=== PATIENT | female | born 1950 | race African-American/Black ===

== ENCOUNTER 2019-06-16 11:50 | Emergency (ER) | payer MEDICAID, SELFPAY ==
[2019-06-16 12:53] LABS: #Eosinphils 0.2 thou/uL (0.0-0.7); #Lymphocytes 1.5 thou/uL (1.20-3.40); #Monocytes 0.7 thou/uL (0.11-0.59); #Neutrophils 4.1 thou/uL (1.40-6.50); %Basophils 0.5 % (0.0-1.0); %Lymphocytes 22.8 % (21.0-51.0); %Monocytes 11.2 % (0.0-10.0); %Neutrophils 62.5 % (42.0-75.0); Hemoglobin 16.2 g/dL (12.0-16.0); Mean Corpuscular HGB CONC 33.7 g/dL (32.0-36.0); Mean Corpuscular Hemoglobin 31.1 pg (27.0-31.0); Mean Corpuscular Volume 92.1 fL (78.0-98.0); Mean Platelet Volume 8.6 fL (7.4-10.4); Platelet Count 165 thou/uL (130-400); Red Blood Cell (RBC) Count 5.23 mill/uL (4.20-5.40); White Blood Cell (WBC) Count 6.6 thou/uL (4.8-10.8)
--- NOTE | 2019-06-16 12:53 | RAD ---
EXAM: Portable chest PROVIDED CLINICAL HISTORY: Chest pain COMPARISON: 09/09/2014 FINDINGS: Cardiac and mediastinal silhouette is within normal limits. No focal consolidation, pleural fluid or pneumothorax evident. Vascular calcification involves the aortic arch. IMPRESSION: No evidence for an acute cardiopulmonary process.
[2019-06-16 13:13] LABS: ALT (SGPT) 14 U/L (8-55); AST (SGOT) 21 U/L (5-34); Albumin 3.8 g/dL (3.4-4.8); Alkaline Phosphatase 58 U/L (40-150); Anion Gap 9 mmol/L (10-20); BUN (Urea Nitrogen) 17 mg/dL (9.8-20.1); Bilirubin, Total 0.9 mg/dL (0.2-1.2); CK (CPK) 46 U/L (29-168); Calc. Creatinine Clearance 0 mL/min (70-130); Calcium 9.2 mg/dL (7.8-10.44); Carbon Dioxide 23 mmol/L (23-31); Chloride 107 mmol/L (98-107); Estimated GFR-MDRD 86; Globulin 3.4 g/dL (2.4-3.5); Glucose 95 mg/dL (80-115); Potassium 3.9 mmol/L (3.5-5.1); Protein, Total 7.2 g/dL (6.0-8.3); Sodium 135 mmol/L (136-145)
== END 2019-06-16 14:21 | disposition home or self-care (01) ==
LOC: ERS 11:50
DX: I47.1 Supraventricular tachycardia (principal); I10 Essential (primary) hypertension; F17.210 Nicotine dependence, cigarettes, uncomplicated; Z79.82 Long term (current) use of aspirin; Z79.899 Other long term (current) drug therapy
CPT/HCPCS: 36415; 71045; 80053; 82550; 84484; 85025; 93005

== ENCOUNTER 2019-07-18 22:29 | Observation (INO) | payer MEDICARE, MEDICAID ==
[2019-07-18 23:26] LABS: ALT (SGPT) 33 U/L (8-55); AST (SGOT) 42 U/L (5-34); Albumin 3.5 g/dL (3.4-4.8); Alkaline Phosphatase 62 U/L (40-110); Anion Gap 14 mmol/L (10-20); BUN (Urea Nitrogen) 26 mg/dL (9.8-20.1); Bilirubin, Total 0.6 mg/dL (0.2-1.2); Calc. Creatinine Clearance 0 mL/min (70-130); Calcium 8.5 mg/dL (7.8-10.44); Carbon Dioxide 19 mmol/L (23-31); Chloride 106 mmol/L (98-107); Estimated GFR-MDRD 90; Globulin 2.8 g/dL (2.4-3.5); Glucose 108 mg/dL (80-115); Lipase 18 U/L (8-78); Magnesium 1.8 mg/dL (1.6-2.6); Potassium 4.2 mmol/L (3.5-5.1); Protein, Total 6.3 g/dL (6.0-8.3); Sodium 135 mmol/L (136-145)
[2019-07-18 23:39] LABS: #Eosinphils 0.1 thou/uL (0.0-0.7); #Lymphocytes 1.1 thou/uL (1.20-3.40); #Monocytes 0.5 thou/uL (0.11-0.59); #Neutrophils 4.8 thou/uL (1.40-6.50); %Basophils 0.7 % (0.0-1.0); %Eosinophils 0.9 % (0.0-10.0); %Lymphocytes 16.9 % (21.0-51.0); %Monocytes 7.3 % (0.0-10.0); %Neutrophils 74.2 % (42.0-75.0); Hemoglobin 13.7 g/dL (12.0-16.0); Mean Corpuscular HGB CONC 31.9 g/dL (32.0-36.0); Mean Corpuscular Hemoglobin 29.7 pg (27.0-31.0); Mean Corpuscular Volume 93.1 fL (78.0-98.0); Mean Platelet Volume 8.5 fL (7.4-10.4); Platelet Count 134 thou/uL (130-400); RBC Distribution Width 12.5 % (11.5-14.5); Red Blood Cell (RBC) Count 4.62 mill/uL (4.20-5.40); White Blood Cell (WBC) Count 6.4 thou/uL (4.8-10.8)
[2019-07-18 23:49] LABS: CKMB 2.2 ng/mL (0-6.6)
[2019-07-19 00:53] LABS: Bacteria/HPF None Seen HPF (None Seen); Bilirubin Negative (Negative); Blood, Urine Negative (Negative); Calcium Oxalate Crystals 1+ HPF (None Seen); Clarity Clear (Clear); Glucose, Urine (Dipstick) Normal (Negative); Leukocyte Negative Leu/uL (Negative); Nitrite Negative (Negative); Protein, Urine (Dipstick) 30 mg/dL (Neg-Trace); RBC/HPF 0-3 HPF (0-3); Squamous Epithelial 0-3 HPF (0-3)
[2019-07-19 00:54] LABS: Amphetamine Not Detected (NotDetected); Barbiturates Screen Not Detected (NotDetected); Benzodiazepine Screen Not Detected (NotDetected); Cocaine Metabolite Screen Detected (NotDetected); Medtox Control Line Valid? VALID (VALID); Medtox Reader # READER 4; Methadone Not Detected (NotDetected); Methamphetamine Not Detected (NotDetected); Opiate Screen Not Detected (NotDetected); Oxycodone Screen Not Detected (NotDetected); Phencyclidine (PCP) Not Detected (NotDetected); THC/Cannabinoid Screen Detected (NotDetected); Tricyclic Screen Not Detected (NotDetected)
[2019-07-19 01:52] VITALS: BMI 22.3
[2019-07-19 02:34] LABS: Troponin I 0.071 ng/mL (< 0.028)
[2019-07-19] MEDS ORDERED: Nitroglycerin 0.4 MG TAB (25 Tab Bottle) PO PRN (05:01)
[2019-07-19] MEDS ORDERED: Ondansetron PF 4 MG/2 ML Vial IVP PRN (05:03)
[2019-07-19] MEDS ORDERED: Acetaminophen 325 MG TAB PO PRN (05:03)
[2019-07-19] MEDS ORDERED: Ondansetron ODT 4 MG TAB PO PRN (05:03)
[2019-07-19] MEDS ORDERED: Calcium Carbonate 500 MG ChewTAB PO PRN (05:03)
[2019-07-19] MEDS ORDERED: Senokot S 8.6-50 MG TAB PO PRN (05:03)
--- NOTE | 2019-07-19 05:52 | HP ---
PRIMARY CARE PHYSICIAN: Alejandra Hudson. CHIEF COMPLAINT: Chest discomfort. HISTORY OF PRESENT ILLNESS: The patient is a 69-year-old female with polysubstance abuse and supraventricular tachycardia, presented to the emergency room with chest discomfort along with palpitations. Five years ago, patient was admitted at this facility for chest discomfort along with palpitations. She was diagnosed with supraventricular tachycardia secondary to cocaine. She was subsequently discharged home after an echocardiogram that showed normal ejection fraction of 60% to 65%. Last month, the patient was evaluated in the emergency room for supraventricular tachycardia that lasted for around 15 minutes or so. She was discharged home. She was advised to follow up with Cardiology as outpatient. Last night, the patient had chest discomfort that was pressure-like along with palpitations. She also had shortness of breath along with lightheadedness. She was found to have narrow complex tachycardia. She received Cardizem by the EMS after which her rhythm changed to sinus. She currently takes metoprolol 50 mg twice daily. Please note that there is no rhythm strip by the EMS. EKG in the emergency room showed sinus rhythm with nonspecific ST-T wave changes. PAST MEDICAL HISTORY: 1. Polysubstance abuse. 2. History of supraventricular tachycardia. 3. Hypertension. PAST SURGICAL HISTORY: Reviewed with the patient and none. SOCIAL HISTORY: The patient currently lives at home. She drinks alcohol 3-4 times a week. Currently abuses cannabis and cocaine. Also smokes up to half pack a day. FAMILY HISTORY: Positive for heart disease. ALLERGIES: NO KNOWN DRUG ALLERGIES. CURRENT HOME MEDICATIONS: 1. Metoprolol 50 mg b.i.d. 2. Aspirin 81 mg daily. REVIEW OF SYSTEMS: All other review of systems was reviewed and were found negative. PHYSICAL EXAMINATION: VITAL SIGNS: Temperature 97.7, respirations of 19, pulse rate of 68, blood pressure of 128/57, O2 saturation of 98% on room air. GENERAL: A 69-year-old female in no apparent distress. Denies any chest discomfort. HEENT: Head, atraumatic and normocephalic. Sclerae anicteric. Moist mucous membranes. No oral lesion. NECK: Supple. No JVD. No carotid bruit. LUNGS: Clear to auscultation bilaterally. No wheezing, rales, or rhonchi. HEART: S1 and S2 present. Regular rate and rhythm. No rubs or gallops. There is systolic murmur 2/5 over the mitral area. ABDOMEN: Soft, nontender. Bowel sounds present. No rebound or guarding. EXTREMITIES: No edema or calf tenderness. NEUROLOGIC: Grossly nonfocal. Moves all 4 extremities. PSYCHIATRY: Alert, awake oriented x3. SKIN: Warm and dry. LYMPH NODE: No palpable lymph nodes in the neck. Peripheral, vascular, radial pulses palpable bilaterally. MUSCULOSKELETAL: No joint swelling tenderness. SKIN: Warm and dry. LABORATORY FINDINGS: EKG by my review as discussed above. WBC is 6.4 with hemoglobin 13.7. Chemistry showed sodium 135, potassium 4.2, chloride 106, bicarb 19, BUN 26, creatinine 0.7. Troponin of 0.071. Urine drug screen positive for cocaine and cannabinoid. Urinalysis was negative for bacteria. IMAGING STUDIES: Chest x-ray by my review was negative for infiltrate or edema. IMPRESSION: 1. Chest discomfort along with palpitations, probably secondary to cocaine abuse. 2. Narrow complex tachycardia. There is no rhythm strip from the EMS in the ER chart. 3. Polysubstance abuse (Tobacco dependence/cannabis abuse/cocaine abuse). 4. History of hypertension with hypertensive heart disease. 5. Dyslipidemia. 6. Chronic kidney disease, stage 2. 7. Elevated troponin secondary to demand ischemia/type 2 myocardial infarction. 8. Hyponatremia. PLAN: The patient will be monitored as a 23-hour observation on the telemetry unit. Serial troponins will be obtained. We will discontinue metoprolol due to cocaine abuse. We will obtain an echocardiogram. We will also try to obtain rhythm strips from the EMS. The patient was extensively counseled on lifestyle modification. We will start her on oral Cardizem. Plan of care was discussed with the patient in detail. She stated understanding. Job ID: [id number]
[2019-07-19 05:56] LABS: CKMB 4.7 ng/mL (0-6.6)
--- NOTE | 2019-07-19 07:13 | RAD ---
1 VIEW CHEST: Date: 07/18/19 HISTORY: Chest pain with crushing type pressure. COMPARISON: 06/16/19. FINDINGS: The cardiac silhouette is magnified by projection, but is enlarged. Pulmonary vasculature is within n ormal limits. There is a linear patchy density at the right lung base which was not present on the pr ior study. This could be related to atelectasis or developing area of pneumonitis. The lungs are othe rwise clear. There is osteopenia with bilateral glenohumeral osteoarthropathy, and the humeral heads are high-riding bilaterally. Vascular calcifications seen in thoracic aorta. IMPRESSION: Linear increased densities right lung base which may be related to vascular structures, but this is c ertainly more prominent than on the prior exam, and atelectasis or pneumonitis cannot be entirely exc luded. Follow-up evaluation is recommended. POS: OFF
[2019-07-19] MEDS: Aspirin 325 mg Enteric Coated Tablet PO SCH (08:08)
[2019-07-19] MEDS: cloNIDine 0.1 MG TAB PO PRN ×2 (08:08→18:08)
[2019-07-19] MEDS: Famotidine 20 MG TAB PO SCH ×2 (08:09→21:33)
[2019-07-20] MEDS: Famotidine 20 MG TAB PO SCH (08:41)
[2019-07-20] MEDS: Aspirin 325 mg Enteric Coated Tablet PO SCH (08:41)
[2019-07-20 13:48] VITALS: BP 162/72; TEMP 97
--- NOTE | 2019-07-20 19:00 | DIS ---
DATE OF ADMISSION: 07/19/2019 DATE OF DISCHARGE: 07/20/2019 CONDITION ON DISCHARGE: Stable. DISCHARGE INSTRUCTIONS: 1. The patient is recommended to stop cocaine use. 2. The patient is recommended to take all medications as directed. 3. The patient is recommended to follow up with primary care physician in the next 5 to 7 days. 4. The patient is recommended to return to acute care hospital immediately if signs or symptoms return, worsen, or any other new symptoms occur. DISCHARGE MEDICATIONS: The patient is recommended to continue home medications without changes. 1. Metoprolol tartrate 50 mg one tablet p.o. b.i.d. 2. Aspirin 81 mg one tablet p.o. daily. 3. The patient was given instructions to not take metoprolol if she is going to use cocaine and she states that she is going to stop this and she is no longer using cocaine. HOSPITAL COURSE: Ms. Judd is a pleasant 69-year-old female, who presented to [facility] on 07/19/2019, with palpitations after cocaine use. The patient was found to have urinary toxicology that was positive for cocaine and cannabinoids. The patient with sinus tachycardia per EMS rhythm strip. The patient was admitted to medical unit with telemetry and monitored on continuous telemetry. There were no arrhythmias appreciated on continuous telemetry throughout her hospitalization. The patient's blood pressure and vital signs remained stable. The patient had an echocardiogram, please see full report for details-the patient with preserved ejection fraction with some valvular pathology that is unchanged from prior echo from 2013. The patient recommended safe for discharge as her symptoms have completely resolved. The patient recommended to abstain from cocaine use as this is likely the cause of sinus tachycardia. The patient is recommended to take all medications as directed. The patient recommended to follow up with primary care physician in the next 5 to 7 days. The patient recommended to return to acute care hospital immediately if signs or symptoms return, worsen, or any other new symptoms occur. Greater than 36 minutes spent coordinating care and discharge process Job ID: [id number] MTDD
== END 2019-07-20 14:05 | disposition home or self-care (01) ==
LOC: ERS 22:29 → 2NO 07-19 01:22 → INTOOBSV 07-19 01:25
PROVIDERS: ADMIT Internal Medicine; ATTEND Internal Medicine
DX: T40.5X1A Poisoning by cocaine, accidental (unintentional), initial encounter (principal); T40.7X1A Poisoning by cannabis (derivatives), accidental (unintentional), initial encounter; I47.1 Supraventricular tachycardia; I13.10 Hypertensive heart and chronic kidney disease without heart failure, with stage 1 through stage 4 chronic kidney disease, or unspecified chronic kidney disease; N18.2 Chronic kidney disease, stage 2 (mild); F17.210 Nicotine dependence, cigarettes, uncomplicated; E78.5 Hyperlipidemia, unspecified; E87.1 Hypo-osmolality and hyponatremia; I21.A1 Myocardial infarction type 2; Z79.82 Long term (current) use of aspirin; Z79.899 Other long term (current) drug therapy
CPT/HCPCS: 71045; 80306; 82553 ×2; 83690; 83735; 84484 ×3; 93005; 93306; 97139 ×2; 99291; G0378 ×2; 36415; 80053; 81003; 81015; 84443; 85025

== ENCOUNTER 2019-09-19 14:31 | Observation (INO) | payer MEDICARE, MEDICAID ==
[2019-09-19 15:05] LABS: Hemoglobin 15.6 g/dL (12.0-16.0); Mean Corpuscular HGB CONC 33.3 g/dL (32.0-36.0); Mean Corpuscular Hemoglobin 30.2 pg (27.0-31.0); Mean Corpuscular Volume 90.8 fL (78.0-98.0); Mean Platelet Volume 8.9 fL (7.4-10.4); Platelet Count 159 thou/uL (130-400); Red Blood Cell (RBC) Count 5.15 mill/uL (4.20-5.40)
--- NOTE | 2019-09-19 15:07 | RAD ---
Portable chest: HISTORY: Chest pain COMPARISON: 07/18/2019 FINDINGS: Lung tian are clear. Heart and mediastinum appear unremarkable. Vascularity is upper nor mal but stable in appearance. Visualized osseous structures unremarkable. IMPRESSION: No acute finding
[2019-09-19 15:22] LABS: Eosinophils 2 % (0-10); Lymphocytes 36 % (21-51); MDiff Complete? YES; Monocytes 14 % (0-10); Neutrophil 40 % (42-75); Platelet Morphology Comment Appears Adequate; RBC Morphology Normal; Reactive Lymphocytes 6 % (0-10)
[2019-09-19 15:28] LABS: ALT (SGPT) 11 U/L (8-55); AST (SGOT) 16 U/L (5-34); Albumin 3.9 g/dL (3.4-4.8); Alkaline Phosphatase 70 U/L (40-110); Anion Gap 14 mmol/L (10-20); BUN (Urea Nitrogen) 17 mg/dL (9.8-20.1); Bilirubin, Total 0.5 mg/dL (0.2-1.2); CK (CPK) 59 U/L (29-168); Calc. Creatinine Clearance 0 mL/min (70-130); Calcium 9.7 mg/dL (7.8-10.44); Carbon Dioxide 26 mmol/L (23-31); Chloride 104 mmol/L (98-107); Estimated GFR-MDRD Greater than 90; Globulin 3.7 g/dL (2.4-3.5); Glucose 100 mg/dL (80-115); Lipase 40 U/L (8-78); Potassium 3.7 mmol/L (3.5-5.1); Protein, Total 7.6 g/dL (6.0-8.3); Sodium 140 mmol/L (136-145)
[2019-09-19] MEDS ORDERED: Aspirin Chewable 81 MG TAB ONE (15:35)
[2019-09-19] MEDS ORDERED: Nitroglycerin 2% Ointment 1 INCH/1 GM Packet ONE (15:35)
[2019-09-19] MEDS ORDERED: Mag-Al 1200 mg/1200 mg/30 ML UDCUP ONE (15:36)
[2019-09-19] MEDS ORDERED: Lidocaine Viscous Sol 2% 15 ml UD Cup ONE (15:36)
[2019-09-19 15:55] LABS: T4 8.8 ug/dL (4.87-11.72); Thyroid Stimulating Hormone 0.3907 uIU/mL (0.35-4.94)
[2019-09-19 17:06] LABS: Acetaminophen Less than 6.0 mcg/mL (10.0-30.0); Alcohol Less than 10 mg/dL (Less than 10); Salicylate Less than 8.0 mg/dL (15.0-30.0)
[2019-09-19 18:45] LABS: Troponin I Less than 0.010 ng/mL (< 0.028)
[2019-09-19] MEDS ORDERED: hydrALAZINE 20 MG/ML VIAL SLOW IVP PRN (18:52)
[2019-09-19] MEDS ORDERED: Acetaminophen 325 MG TAB PO PRN (18:55)
[2019-09-19] MEDS ORDERED: Acetaminophen 650 MG Suppository PR PRN (18:55)
--- NOTE | 2019-09-19 20:06 | HP ---
TIME OF ASSESSMENT: 1700 hours. CHIEF COMPLAINT: Chest pain. HISTORY OF PRESENT ILLNESS: Ms. Judd is a 69-year-old woman, who presents with complaints of worsening left substernal chest pain for the last several days. States she has had chronic issues with intermittent chest pain for months, but more recently has become more frequent and lasting longer. She states that happens while she is resting and while she exerts herself. She denies any associated shortness of breath. She does have a chronic cough productive for clear to white sputum. Her cough has not been worse in recent days. She denies any fevers or chills, but has been extremely tired for the last week. Denies any runny nose or sore throat. Denies any muscle aches. The patient states that the pain sometimes relieved when she belches or by self-induced vomiting. Denies any hematemesis or abdominal pain. The patient does have a known history of cocaine use, but is unable to pinpoint the last time that she used. She also reports smoking the last few months, but unable to pinpoint how many cigarettes per day. Per ED report, the patient took two baby aspirin this morning while at home. On arrival here, she had two separate EKGs done both reported to have possible ST elevation. However, on review by the ED physician and Dr. Gutierrez, who took apart there did not appear to be any clear evidence of ST changes. The patient has been asymptomatic while she has been here. She was given 162 mg of aspirin in the emergency department. She was noted to have a significantly elevated blood pressure on initial presentation of 231/95. This improved to 170/73 following Nitro-Bid. The patient was also given a GI cocktail. REVIEW OF SYSTEMS: The patient denies any changes with her appetite. Denies any dysphagia or regurgitation. Denies any abdominal pain. She denies any changes or stools such as diarrhea, constipation, melena, or bright red blood per rectum. Denies having any urinary symptoms. She does complain of feeling lightheaded at times, but no presyncope or syncope. No lower leg swelling or calf tenderness. ALLERGIES: NO KNOWN DRUG ALLERGIES. CURRENT MEDICATIONS: 1. Metoprolol succinate. 2. Aspirin. PAST MEDICAL HISTORY: 1. Hypertension. 2. Atrial fibrillation. 3. Asthma several years ago and no longer requires inhalers. 4. History of cocaine abuse. PAST SURGICAL HISTORY: None. 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 Reports being a former heavy smoker, but has cut down significantly. Unable to state how many cigarettes she has a day, but it is less than half a pack. Denies any recent cocaine use, but unable to state when the last time she used it was. Also history of marijuana use. PHYSICAL EXAMINATION: GENERAL: The patient appears thin, well developed, and in no acute distress. VITAL SIGNS: Temperature 98.3, pulse 53, blood pressure 180/70, respirations 14, O2 saturation 98% on room air. HEENT: Normocephalic and atraumatic. Pupils are equal, round, and reactive to light. Sclerae icterus. Oropharynx is clear. NECK: Supple. LUNGS: Clear to auscultation bilaterally without any wheezes, rales, or rhonchi. CARDIAC: Regular rate and rhythm. No reproducible chest wall tenderness on palpation. ABDOMEN: Soft, nontender, nondistended. No guarding or rigidity. Normal bowel sounds present. EXTREMITIES: No lower leg swelling or edema. No calf tenderness. NEUROLOGIC: Alert and oriented x3. No neuro deficits on exam. SKIN: Normal, warm, and dry. INVESTIGATIONS: Laboratory studiesdone in the emergency department include full blood count notable for white count of 5, hemoglobin of 15.6, hematocrit 46.8, platelets 159, neutrophils 40%. Sodium 140, potassium 3.7, BUN 17, creatinine 0.76, GFR greater than 90. LFTs unremarkable. CK 59, lipase 40. Initial troponin negative. BNP 244.9, T4 8.8, TSH 0.3907. Blood drug screen was negative for acetaminophen and salicylates. D-dimer pending. Chest x-ray was done showing no acute findings. IMPRESSION AND PLAN: Ms. Judd is a pleasant 69-year-old woman, who presents with complaints of intermittent chest pain worsen over the last several days. She is being admitted for management of the following. 1. Acute coronary syndrome rule out. EKG with questionable ST elevations. However, on review by ED physician, Dr. Gutierrez, there is no evidence of ST changes. Initial troponin negative. Continue to trend troponins. The patient known to have history of cocaine abuse. We will obtain urine drug screen. She had an echo done in June 2019 which showed an EF of 60% to 65%, mild , mitral stenosis, aortic regurgitation, mild TR and WA. There was some enlargement of the right atrium and changes consistent with diastolic dysfunction at that time. BNP today is 244.9. D-dimer pending. Further imaging with CT angiogram versus CT chest pending results of D-dimer. The patient will be admitted to telemetry for continuous cardiac monitoring. Consult placed to Cardiology. 2. Hypertensive urgency. The patient treated with Nitro-Bid with notable improvement in her blood pressure. We will monitor blood pressure and resume home medications once verified. P.r.n. hydralazine ordered. 3. Gastrointestinal prophylaxis. The patient does report some GI type of symptoms and pain is relieved with belching and self-induced vomiting. GI cocktail given in the emergency department. She could be experiencing esophageal spasms. We will start patient on famotidine b.i.d. 4. Deep venous thrombosis prophylaxis. The patient is ambulatory. 5. Code status full. Surrogate decision maker is at this present time. Job ID: [id number]
[2019-09-19 20:35] VITALS: BMI 21.8
[2019-09-19 20:45] LABS: Amphetamine Not Detected (NotDetected); Barbiturates Screen Not Detected (NotDetected); Benzodiazepine Screen Not Detected (NotDetected); Cocaine Metabolite Screen Detected (NotDetected); Medtox Control Line Valid? VALID (VALID); Medtox Reader # READER 4; Methadone Not Detected (NotDetected); Methamphetamine Not Detected (NotDetected); Opiate Screen Not Detected (NotDetected); Oxycodone Screen Not Detected (NotDetected); Phencyclidine (PCP) Not Detected (NotDetected); THC/Cannabinoid Screen Detected (NotDetected); Tricyclic Screen Not Detected (NotDetected)
[2019-09-19] MEDS ORDERED: Famotidine/PF 20 mg/2ml Vial SLOW IVP SCH (21:00)
[2019-09-19] MEDS ORDERED: Famotidine 20 MG TAB PO SCH (21:15)
--- NOTE | 2019-09-19 21:18 | CT ---
CT ANGIOGRAM THORAX WITH IV CONTRAST AND 3D RECONSTRUCTIONS: 09/19/19 HISTORY: Dyspnea on exertion, chest pain. COMPARISON: None. FINDINGS: The right and left main pulmonary arteries are enlarged measuring 3.3 cm on the left. Main pulmonary artery is not significantly dilated. However, these findings may be attributable to pulmonary artery hypertension. No filling defects are seen in the pulmonary arteries to suggest a pulmonary embolus. The heart is mildly enlarged. Prominent calcifications of the mitral valve annulus are noted. Vascula r calcifications are seen in the coronary arteries as well as involving the thoracic aorta. The thora cic aorta is normal in caliber with without evidence of an aortic dissection. The thyroid gland is diffusely enlarged. No discrete nodule is seen on this exam. There is mildly increased precarinal lymph node measuring 1 cm in short axis dimension. Also soft tis arsh prominence in the right hilar region likely related to prominent lymph nodes. There are reticulonodular densities seen within the right upper lobe which may be related to infectio us or inflammatory process. No consolidation is seen. There is patchy density at the left lung base p robably attributable to atelectasis. Mild linear atelectasis also seen in a right paraspinal location at the right lung base. A noncalcified pulmonary nodule is seen in the posterior aspect of the right lung apex which measures 6 mm. Pleural based nodular density is seen in the anterior aspect of the right upper lobe. No pleu ral effusion or pneumothorax is identified. A calculus is seen within the visualized gallbladder. There is a 2.9 cm hypodense lesion seen involvi ng the left adrenal gland which demonstrates attenuation coefficient likely related to adrenal adenop athy, but some of the areas demonstrates what appear to be macroscopic areas of fat and this may repr esent an adrenal myelolipoma. IMPRESSION: 1. 6 mm pulmonary nodule right lung apex. Follow-up CT thorax in six months is recommended. 2. No CT evidence of a pulmonary embolus, but there is enlargement of each main pulmonary artery suggesting element of pulmonary artery hypertension. 3. Cardiomegaly. 4. Vascular calcifications. 5. Reticulonodular densities right upper lobe which may be related to infectious or inflammatory process. 6. Diffuse enlargement of the thyroid gland. 7. Apparent left adrenal lesion which does abut the stomach. This is likely related to an adrena l lesion as opposed to gastric diverticulum. This does demonstrate areas of macroscopic fat. This is felt to more likely be related to benign adrenal lesion. However, a follow-up CT abdomen with and wit hout IV contrast is recommended. 8. Cholelithiasis. 9. Mild cardiomegaly. POS: [facility]
[2019-09-19 22:34] LABS: Troponin I Less than 0.010 ng/mL (< 0.028)
[2019-09-19] MEDS ORDERED: Sodium Chloride 0.9% 1,000 ML IV SCH (23:55)
[2019-09-20 05:46] LABS: Anion Gap 8 mmol/L (10-20); BUN (Urea Nitrogen) 14 mg/dL (9.8-20.1); Calc. Creatinine Clearance 64 mL/min (70-130); Calcium 9.3 mg/dL (7.8-10.44); Carbon Dioxide 30 mmol/L (23-31); Cardiac Risk 4.1 (Less than 4.5); Chloride 105 mmol/L (98-107); Cholesterol 155 mg/dl (< 200 Desired); Estimated GFR-MDRD 87; Glucose 86 mg/dL (80-115); HDL Cholesterol 38 mg/dL (>60 Neg Risk); LDL Cholesterol, Calculated 104 mg/dL; Potassium 4.3 mmol/L (3.5-5.1); Sodium 139 mmol/L (136-145); Triglycerides 67 mg/dL (Less than 150)
[2019-09-20 05:47] LABS: Hemoglobin 14.3 g/dL (12.0-16.0); Lymphocytes 34 % (21-51); MDiff Complete? YES; Mean Corpuscular HGB CONC 32.6 g/dL (32.0-36.0); Mean Corpuscular Hemoglobin 29.9 pg (27.0-31.0); Mean Corpuscular Volume 91.7 fL (78.0-98.0); Mean Platelet Volume 8.3 fL (7.4-10.4); Monocytes 11 % (0-10); Neutrophil 54 % (42-75); Platelet Count 155 thou/uL (130-400); RBC Distribution Width 12.1 % (11.5-14.5); Red Blood Cell (RBC) Count 4.79 mill/uL (4.20-5.40); White Blood Cell (WBC) Count 5.4 thou/uL (4.8-10.8)
[2019-09-20 05:48] LABS: Eosinophils 1 % (0-10); Platelet Morphology Comment Appears Adequate; RBC Morphology Normal
[2019-09-20] MEDS ORDERED: Famotidine 20 MG TAB PO SCH (09:00)
[2019-09-20] MEDS ORDERED: Amlodipine 10 MG TAB PO SCH (09:00)
[2019-09-20] MEDS ORDERED: ADENOSINE 60 MG/20 ML VIAL ONE (11:48)
[2019-09-20 12:27] VITALS: TEMP 98.3
--- NOTE | 2019-09-20 13:05 | NM ---
MYOCARDIAL PERFUSION STUDY: HISTORY: Chest pain, atrial fibrillation, SVT. RADIOPHARMACEUTICALS: 30.8 mCi Technetium 99m sestamibi, IV at stress and 9.8 mCi technetium 99m sestamibi, IV at rest. MEDICATIONS: 31.4 mg (10.5 mL) adenosine, IV. FINDINGS: There is normal uptake of radiotracer seen throughout the left ventricular myocardium on the stress a nd resting acquisitions. No reversible defect is identified. Quantitative analysis also shows no si gnificant reversible defect. The gated images demonstrate normal ventricular wall motion and wall th ickening. The calculated left ventricular ejection fraction is 65%. IMPRESSION: 1. Normal myocardial perfusion study without evidence of a reversible defect seen to suggest ischemi a. 2. Normal left ventricular ejection fraction of 65%. POS: [facility]
[2019-09-20] MEDS ORDERED: Lisinopril 10 MG TAB PO SCH (13:15)
[2019-09-20 15:44] VITALS: BP 159/70
--- NOTE | 2019-09-20 20:08 | DIS ---
DATE OF ADMISSION: 09/19/2019 DATE OF DISCHARGE: 09/20/2019 PRIMARY CARE PROVIDER: [facility]. DISCHARGE DIAGNOSES: 1. Hypertensive emergency. 2. Chest pain. 3. Cocaine abuse. 4. Chronic obstructive pulmonary disease. 5. Paroxysmal atrial fibrillation. 6. Hypertension. 7. Cardiomegaly. 8. Right-sided pulmonary nodule. 9. Left adrenal lesion. 10. Cholelithiasis. HOSPITAL COURSE: A 69-year-old female with past medical history significant for hypertension, paroxysmal atrial fibrillation, tobacco abuse disorder, as well as cocaine use, who presented to the emergency room with worsening chest pain associated with worsening cough. On presentation, systolic blood pressure was above 200. The patient was treated with aspirin and isosorbide mononitrate and analgesic with improvement in blood pressure. Further evaluation with serial troponin, however, were unremarkable, but urine drug screen was positive for cocaine and marijuana. The patient was continued on antihypertensives and admitted to the telemetry floor. She subsequently had nuclear stress test, which was negative for reversible ischemia. Chest pain resolved and the patient remained clinically improved and was subsequently discharged home. Note that the patient who has metoprolol as one of her home medications, had the metoprolol discontinued due to cocaine abuse. She, however, was started on amlodipine and lisinopril with improvement in blood pressure control. The patient had CT angio chest given mildly elevated D-dimer, but these showed 6 mm right lung apex pulmonary nodule as well as right upper lobe reticulonodular densities and left adrenal lesion and cholelithiasis. Given resolution of chest pain and general improvement, the patient was discharged home subsequently. PHYSICAL EXAMINATION: VITAL SIGNS: Temperature 98.3, pulse 66, respiratory rate 14, SpO2 of 96% on room air, blood pressure is 159/70. GENERAL: Elderly female, in no obvious distress, but fatigued. HEENT: Normocephalic, atraumatic. Oral mucosa is moist. NECK: Supple with no JVD. CARDIOVASCULAR: Regular rhythm and rate with soft systolic murmur. RESPIRATORY: Fair air entry bilaterally with no obvious crackle or rhonchi or use of accessory muscles. GI: Full, soft, nontender, nondistended with normal bowel sounds. EXTREMITIES: Grossly normal looking, atraumatic with no obvious edema or erythema. DISCHARGE CONDITION: Improved. DISCHARGE DISPOSITION: Home. DISCHARGE FOLLOWUP: Instructed to follow up and at the [facility] within 7 days of discharge. DISCHARGE MEDICATIONS: 1. Aspirin 81 mg p.o. daily. 2. Acetaminophen 650 mg q.4 p.r.n. for pain. 3. Amlodipine 10 mg p.o. daily. 4. Lisinopril 20 mg p.o. daily. Job ID: [id number]
[2019-09-21] MEDS ORDERED: Lisinopril 20 MG TAB PO SCH (09:00)
== END 2019-09-20 18:55 | disposition home or self-care (01) ==
LOC: ERS 14:31 → 2SW 19:31
PROVIDERS: ADMIT Emergency Medicine; ATTEND Emergency Medicine
DX: I16.1 Hypertensive emergency (principal); I10 Essential (primary) hypertension; F17.210 Nicotine dependence, cigarettes, uncomplicated; I48.0 Paroxysmal atrial fibrillation; F12.10 Cannabis abuse, uncomplicated; F14.10 Cocaine abuse, uncomplicated; J44.9 Chronic obstructive pulmonary disease, unspecified; I51.7 Cardiomegaly; K80.20 Calculus of gallbladder without cholecystitis without obstruction; R91.1 Solitary pulmonary nodule; Z79.82 Long term (current) use of aspirin; Z79.899 Other long term (current) drug therapy
CPT/HCPCS: 71045; 71275; 78452; 80048; 80061; 80306; 80307; 82550; 83690; 83735; 83880; 84436; 84484 ×2; 85025; 85379; 87633; 93005; 93017; 94760; 99285; A9500; 36415; 80053; 84443; 96360; 96361; G0378; J0153

== ENCOUNTER 2019-09-21 04:56 | Emergency (ER) | payer MEDICARE, MEDICAID ==
[2019-09-21 05:48] LABS: #Eosinphils 0.1 thou/uL (0.0-0.7); #Lymphocytes 1.9 thou/uL (1.20-3.40); #Monocytes 0.9 thou/uL (0.11-0.59); %Basophils 0.3 % (0.0-1.0); %Eosinophils 1.7 % (0.0-10.0); %Lymphocytes 33.1 % (21.0-51.0); %Monocytes 14.6 % (0.0-10.0); %Neutrophils 50.3 % (42.0-75.0); Hemoglobin 14.2 g/dL (12.0-16.0); Mean Corpuscular HGB CONC 33.6 g/dL (32.0-36.0); Mean Corpuscular Hemoglobin 30.8 pg (27.0-31.0); Mean Corpuscular Volume 91.4 fL (78.0-98.0); Mean Platelet Volume 8.4 fL (7.4-10.4); Platelet Count 154 thou/uL (130-400); RBC Distribution Width 11.9 % (11.5-14.5); Red Blood Cell (RBC) Count 4.62 mill/uL (4.20-5.40); White Blood Cell (WBC) Count 5.9 thou/uL (4.8-10.8)
[2019-09-21 06:16] LABS: ALT (SGPT) 12 U/L (8-55); AST (SGOT) 13 U/L (5-34); Albumin 3.4 g/dL (3.4-4.8); Alkaline Phosphatase 51 U/L (40-110); Anion Gap 9 mmol/L (10-20); BUN (Urea Nitrogen) 13 mg/dL (9.8-20.1); Bilirubin, Total 0.6 mg/dL (0.2-1.2); CK (CPK) 47 U/L (29-168); Calc. Creatinine Clearance 0 mL/min (70-130); Calcium 9.3 mg/dL (7.8-10.44); Carbon Dioxide 28 mmol/L (23-31); Chloride 102 mmol/L (98-107); Estimated GFR-MDRD 90; Globulin 3.2 g/dL (2.4-3.5); Glucose 111 mg/dL (80-115); Lipase 28 U/L (8-78); Potassium 3.2 mmol/L (3.5-5.1); Protein, Total 6.6 g/dL (6.0-8.3); Sodium 136 mmol/L (136-145)
--- NOTE | 2019-09-21 07:47 | RAD ---
EXAM: Single view of the chest HISTORY: Chest pain COMPARISON: 09/19/2019 FINDINGS: Single view of the chest shows a normal sized cardiomediastinal silhouette. There is no lópez dence of consolidation, mass, or pleural effusion. The bones are unremarkable. IMPRESSION: No evidence of acute cardiopulmonary disease
== END 2019-09-21 06:51 | disposition home or self-care (01) ==
LOC: ERS 04:56
DX: R07.89 Other chest pain (principal); I10 Essential (primary) hypertension; J45.909 Unspecified asthma, uncomplicated; F41.9 Anxiety disorder, unspecified; F17.210 Nicotine dependence, cigarettes, uncomplicated; Z79.899 Other long term (current) drug therapy; Z79.82 Long term (current) use of aspirin
CPT/HCPCS: 36415; 71045; 80053; 82550; 83690; 84484; 85025; 93005

== ENCOUNTER 2020-11-02 13:26 | Emergency (ER) | payer MEDICARE, MEDICAID ==
--- NOTE | 2020-11-02 14:00 | RAD ---
EXAM: Chest 2 views: HISTORY: Recent heart valve surgery with heart fluttering and weakness COMPARISON: 11/17/2014, 05/16/2020 FINDINGS: There is a normal-sized cardiomediastinal silhouette. Atherosclerotic calcifications are seen in the aorta. Diffuse increased interstitial markings are present. Opacity seen in the left costophrenic angle which could represent atelectasis or an infiltrate. No acute osseous abnormality. IMPRESSION: Left basilar atelectasis versus infiltrate.
[2020-11-02 14:27] LABS: #Basophils 0.1 thou/uL (0.0-0.2); #Eosinphils 0.2 thou/uL (0.0-0.7); #Lymphocytes 2.5 thou/uL (1.20-3.40); #Monocytes 0.8 thou/uL (0.11-0.59); #Neutrophils 2.6 thou/uL (1.40-6.50); %Eosinophils 3.4 % (0.0-10.0); %Lymphocytes 40.1 % (21.0-51.0); %Neutrophils 42.6 % (42.0-75.0); Hemoglobin 15.5 g/dL (12.0-16.0); Mean Corpuscular HGB CONC 32.6 g/dL (32.0-36.0); Mean Corpuscular Hemoglobin 30.4 pg (27.0-31.0); Mean Corpuscular Volume 93.1 fL (78.0-98.0); Mean Platelet Volume 8.3 fL (7.4-10.4); Platelet Count 158 thou/uL (130-400); RBC Distribution Width 12.7 % (11.5-14.5); Red Blood Cell (RBC) Count 5.11 mill/uL (4.20-5.40); White Blood Cell (WBC) Count 6.1 thou/uL (4.8-10.8)
[2020-11-02 14:50] LABS: ALT (SGPT) 11 U/L (8-55); AST (SGOT) 20 U/L (5-34); Albumin 4.2 g/dL (3.4-4.8); Alkaline Phosphatase 72 U/L (40-110); Anion Gap 12 mmol/L (10-20); BUN (Urea Nitrogen) 19 mg/dL (9.8-20.1); Bilirubin, Total 0.7 mg/dL (0.2-1.2); Calc. Creatinine Clearance 0 mL/min (70-130); Calcium 9.7 mg/dL (7.8-10.44); Carbon Dioxide 27 mmol/L (23-31); Chloride 102 mmol/L (98-107); Globulin 4.3 g/dL (2.4-3.5); Glucose 70 mg/dL (80-115); Magnesium 1.9 mg/dL (1.6-2.6); Potassium 4.2 mmol/L (3.5-5.1); Protein, Total 8.5 g/dL (5.8-8.1); Sodium 137 mmol/L (136-145)
== END 2020-11-02 16:33 | disposition home or self-care (01) ==
LOC: ERS 13:26
DX: R42 Dizziness and giddiness (principal); R07.89 Other chest pain; R29.700 NIHSS score 0; I10 Essential (primary) hypertension; J45.909 Unspecified asthma, uncomplicated; F17.210 Nicotine dependence, cigarettes, uncomplicated; Z79.82 Long term (current) use of aspirin; Z79.899 Other long term (current) drug therapy
CPT/HCPCS: 36415; 71046; 80053; 83735; 84484; 85025; 93005; 94760

== ENCOUNTER 2020-12-15 23:12 | Observation (INO) | payer MEDICARE, MEDICAID ==
[2020-12-15 23:43] LABS: #Basophils 0.1 thou/uL (0.0-0.2); #Eosinphils 0.1 thou/uL (0.0-0.7); #Lymphocytes 2.7 thou/uL (1.20-3.40); #Monocytes 0.9 thou/uL (0.11-0.59); #Neutrophils 3.3 thou/uL (1.40-6.50); %Basophils 1.8 % (0.0-1.0); %Eosinophils 2.1 % (0.0-10.0); %Lymphocytes 37.6 % (21.0-51.0); %Monocytes 12.9 % (0.0-10.0); %Neutrophils 45.7 % (42.0-75.0); Hemoglobin 14.6 g/dL (12.0-16.0); Mean Corpuscular HGB CONC 32.6 g/dL (32.0-36.0); Mean Corpuscular Hemoglobin 29.7 pg (27.0-31.0); Mean Corpuscular Volume 91.1 fL (78.0-98.0); Mean Platelet Volume 7.9 fL (7.4-10.4); Platelet Count 167 thou/uL (130-400); RBC Distribution Width 12.5 % (11.5-14.5); Red Blood Cell (RBC) Count 4.93 mill/uL (4.20-5.40); White Blood Cell (WBC) Count 7.3 thou/uL (4.8-10.8)
[2020-12-16 00:03] LABS: Acetaminophen Less than 6.0 mcg/mL (10.0-30.0); Alcohol 20 mg/dL (Less than 10); Salicylate Less than 8.0 mg/dL (15.0-30.0)
[2020-12-16 00:08] LABS: ALT (SGPT) 16 U/L (8-55); AST (SGOT) 22 U/L (5-34); Albumin 4.3 g/dL (3.4-4.8); Alkaline Phosphatase 56 U/L (40-110); Anion Gap 15 mmol/L (10-20); BUN (Urea Nitrogen) 17 mg/dL (9.8-20.1); Bilirubin, Total 0.7 mg/dL (0.2-1.2); Calc. Creatinine Clearance 0 mL/min (70-130); Calcium 9.9 mg/dL (7.8-10.44); Carbon Dioxide 21 mmol/L (23-31); Chloride 100 mmol/L (98-107); Glucose 78 mg/dL (80-115); Lipase 36 U/L (8-78); Potassium 3.9 mmol/L (3.5-5.1); Protein, Total 8.3 g/dL (5.8-8.1); Sodium 132 mmol/L (136-145)
[2020-12-16 00:30] LABS: Amphetamine Not Detected (NotDetected); Barbiturates Screen Not Detected (NotDetected); Benzodiazepine Screen Not Detected (NotDetected); Cocaine Metabolite Screen Detected (NotDetected); Medtox Control Line Valid? VALID (VALID); Medtox Reader # READER 1; Methadone Not Detected (NotDetected); Methamphetamine Not Detected (NotDetected); Opiate Screen Not Detected (NotDetected); Oxycodone Screen Not Detected (NotDetected); Phencyclidine (PCP) Not Detected (NotDetected); THC/Cannabinoid Screen Not Detected (NotDetected); Tricyclic Screen Not Detected (NotDetected)
[2020-12-16] MEDS ORDERED: Lorazepam 2 MG/ML VIAL ONE (02:25)
[2020-12-16] MEDS ORDERED: Nitroglycerin 0.4 MG TAB (25 Tab Bottle) SL PRN (07:34)
[2020-12-16] MEDS ORDERED: Calcium Carbonate 500 MG ChewTAB PO PRN (07:36)
[2020-12-16] MEDS ORDERED: Bisacodyl 10 MG SUPP PR PRN (07:36)
[2020-12-16] MEDS ORDERED: HYDROcodone/Acetaminophen 5/325 mg Tablet PO PRN (07:36)
[2020-12-16] MEDS ORDERED: Acetaminophen 325 MG TAB PO PRN (07:36)
[2020-12-16] MEDS ORDERED: Ondansetron ODT 4 MG TAB PO PRN (07:36)
[2020-12-16] MEDS ORDERED: Guaifenesin DM 100-10/5 ML UDCUP PO PRN (07:36)
[2020-12-16] MEDS ORDERED: Zolpidem Tartrate 5 MG TAB PO PRN (07:36)
[2020-12-16] MEDS ORDERED: Senokot S 8.6-50 MG TAB PO PRN (07:36)
[2020-12-16] MEDS ORDERED: Ondansetron PF 4 MG/2 ML Vial IVP PRN (07:36)
[2020-12-16] MEDS ORDERED: Aspirin Chewable 81 MG TAB PO SCH (07:45)
[2020-12-16] MEDS ORDERED: Famotidine 20 MG TAB ONE (08:04)
[2020-12-16] MEDS ORDERED: Aspirin Chewable 81 MG TAB ONE (08:04)
[2020-12-16] MEDS ORDERED: Famotidine 20 MG TAB PO SCH (09:00)
[2020-12-16 10:54] VITALS: BP 138/59; TEMP 98.1
[2020-12-16 14:36] LABS: SARS-CoV-2 PCR by NAA Not Detected (NotDetected)
[2020-12-17] MEDS ORDERED: Aspirin Chewable 81 MG TAB PO SCH (09:00)
== END 2020-12-16 11:15 | disposition home or self-care (01) ==
LOC: ERS 23:12 → ERHOLD 12-16 03:03
PROVIDERS: ADMIT Internal Medicine; ATTEND Internal Medicine
DX: F14.10 Cocaine abuse, uncomplicated (principal); R07.89 Other chest pain; I10 Essential (primary) hypertension; I25.10 Atherosclerotic heart disease of native coronary artery without angina pectoris; F17.210 Nicotine dependence, cigarettes, uncomplicated; E78.5 Hyperlipidemia, unspecified; Z79.02 Long term (current) use of antithrombotics/antiplatelets; Z79.82 Long term (current) use of aspirin; Z79.899 Other long term (current) drug therapy; Z20.822 Contact with and (suspected) exposure to COVID-19
CPT/HCPCS: 71045; 80053; 80306; 80307; 83690; 84484 ×3; 85025; 93005; 96374; 99285; G0378; U0003; U0005; 36415; 87635; J2060

== ENCOUNTER 2021-06-11 23:25 | Emergency (ER) | payer MEDICARE, MEDICAID ==
[2021-06-12 08:41] LABS: #Basophils 0.1 thou/uL (0.0-0.2); #Eosinphils 0.3 thou/uL (0.0-0.7); #Lymphocytes 1.9 thou/uL (1.20-3.40); #Monocytes 0.8 thou/uL (0.11-0.59); #Neutrophils 3.2 thou/uL (1.40-6.50); %Eosinophils 4.4 % (0.0-10.0); %Monocytes 12.7 % (0.0-10.0); %Neutrophils 51.9 % (42.0-75.0); Hemoglobin 13.5 g/dL (12.0-16.0); Mean Corpuscular HGB CONC 31.9 g/dL (32.0-36.0); Mean Corpuscular Hemoglobin 29.3 pg (27.0-31.0); Mean Corpuscular Volume 91.8 fL (78.0-98.0); Mean Platelet Volume 8.1 fL (7.4-10.4); Platelet Count 174 thou/uL (130-400); RBC Distribution Width 12.7 % (11.5-14.5); Red Blood Cell (RBC) Count 4.59 mill/uL (4.20-5.40); White Blood Cell (WBC) Count 6.2 thou/uL (4.8-10.8)
[2021-06-12 08:42] LABS: ALT (SGPT) 12 U/L (8-55); AST (SGOT) 18 U/L (5-34); Albumin 3.9 g/dL (3.4-4.8); Alkaline Phosphatase 79 U/L (40-110); Anion Gap 12 mmol/L (10-20); BUN (Urea Nitrogen) 16 mg/dL (9.8-20.1); Bilirubin, Total 0.6 mg/dL (0.2-1.2); CK (CPK) 109 U/L (29-168); Calc. Creatinine Clearance 0 mL/min (70-130); Calcium 10.1 mg/dL (7.8-10.44); Carbon Dioxide 28 mmol/L (23-31); Chloride 101 mmol/L (98-107); Globulin 3.4 g/dL (2.4-3.5); Glucose 90 mg/dL (80-115); Lipase 37 U/L (8-78); Potassium 4.2 mmol/L (3.5-5.1); Protein, Total 7.3 g/dL (5.8-8.1); Sodium 137 mmol/L (136-145)
== END 2021-06-12 03:10 | disposition left against medical advice (07) ==
LOC: ERS 23:25
DX: Z53.21 Procedure and treatment not carried out due to patient leaving prior to being seen by health care provider (principal)
CPT/HCPCS: 36415; 71045; 80053; 82550; 83690; 83880; 84484; 85025; 93005